=== PATIENT | male | born 1945 | race African-American/Black ===

== ENCOUNTER 2018-05-31 14:18 | Inpatient (IN) | payer MEDICARE, OTHER ==
[~2018-05-31] VITALS: Ht 165.1 cm; Wt 64.4 kg
[~2018-05-31 14:18] MED LIST: AMIODARONE PO; ASPI-1158 PO; ATOR40TA70 PO; CARV6.2548 PO; CILO100T PO; CLON0.1T PO; CLOP75TA33 PO; FINA5TAB11 PO; FLUT1DIS3 INH; FURO-151 PO; HYDR-3933 PO; KDUR10 PO; MEXILETINE PO; ONDA4TAB51 PO; PANT40TA4 PO; Proair HFA; RANI150C12 PO; SENN1TAB35 PO; SERT50TA PO; SPIR25TA6 PO; TAMS0.4C31 PO
[2018-05-31] MEDS ORDERED: ONDANSETRON HCL 4MG/2ML INJ IV STA (17:06)
[2018-05-31] MEDS ORDERED: MORPHINE SULFATE 4 MG/ML CPJ (NOT FOR IM USE) IV STA (17:06)
[2018-05-31 17:36] LABS: BASOPHILS % 0.3 % (0.0-2.0); EOSINOPHILS % 3.6 % (0.0-5.0); HEMATOCRIT. 40.4 % (42.0-52.0); LYMPHOCYTES % 42.8 % (20.0-50.0); MEAN CORPUSCULAR HEMOGLOBIN 28.7 pg (28.0-32.0); MEAN CORPUSCULAR VOLUME 89.2 fL (80.0-94.0); MONOCYTES % 12.8 % (2.0-8.0); NEUTROPHILS % 40.5 % (40.0-76.0); PLATELET 230 x1000/uL (130-400); RED BLOOD CELL COUNT 4.54 mill/uL (4.7-6.1); RED CELL DISTRIBUTION WIDTH 16.6 % (11.6-14.6)
[2018-05-31 17:39] LABS: CHLORIDE 111 mEq/L (98-107)
[2018-05-31 17:43] LABS: ETHANOL BLOOD < 10 mg/dL
[2018-05-31 18:00] LABS: PARTIAL THROMBOPLASTIN TIME 27.6 sec (23.4-31.0)
[2018-05-31 18:36] LABS: CLARITY URINE CLOUDY (CLEAR); COLOR URINE YELLOW (YELLOW); KETONES URINE NEGATIVE (NEGATIVE); LEUKOCYTE ESTERASE URINE TRACE (NEGATIVE); NITRITE URINE NEGATIVE (NEGATIVE); OCCULT BLOOD URINE NEGATIVE (NEGATIVE); PROTEIN URINE NEGATIVE (NEGATIVE); UROBILINOGEN URINE 0.2 E.U./dL (0.2-1.0)
[2018-05-31] MEDS ORDERED: LEVOFLOXACIN 500MG PREMIX 100 ML IV ONE (19:30)
[2018-05-31] MEDS ORDERED: ONDANSETRON HCL 4MG/2ML INJ IV PRN (22:30)
[2018-05-31] MEDS ORDERED: CLONIDINE 0.1MG TABLET PO PRN (22:30)
[2018-05-31] MEDS ORDERED: LOPERAMIDE HCL 2MG CAPSULE PO PRN (22:30)
[2018-05-31] MEDS ORDERED: LORAZEPAM 2MG/ML CPJ IV PRN (22:30)
[2018-05-31] MEDS ORDERED: HYDROCODONE/ACETAMINOPHEN 5/325MG TABLET PO PRN (22:30)
[2018-05-31] MEDS ORDERED: GUAIFENESIN 200MG/10ML SUGAR FREE UDC PO PRN (22:30)
[2018-05-31] MEDS ORDERED: ACETAMINOPHEN 325MG TABLET PO PRN (22:30)
[2018-05-31] MEDS ORDERED: MAGNESIUM/ALUMINUM HYDROXIDE/SIMETHICONE 30ML UDC PO PRN (22:30)
[2018-05-31 23:00] VITALS: BP 106/67
[2018-06-01] MEDS: TAMSULOSIN HCL 0.4MG SR CAPSULE PO SCH ×2 (00:34→09:32)
[2018-06-01] MEDS: SODIUM CHLORIDE 0.45% 1,000 ML IV SCH (00:34)
[2018-06-01 04:00] VITALS: BP 137/77
[2018-06-01 08:28] LABS: BASOPHILS % 0.4 % (0.0-2.0); EOSINOPHILS % 3.1 % (0.0-5.0); HEMOGLOBIN. 11.9 g/dL (14.0-18.0); LYMPHOCYTES % 51.8 % (20.0-50.0); MEAN CORPUSCULAR HEMOGLOBIN 28.1 pg (28.0-32.0); MEAN CORPUSCULAR VOLUME 89.4 fL (80.0-94.0); MEAN PLATELET VOLUME 9.1 fl (7.4-10.4); MONOCYTES % 12.5 % (2.0-8.0); NEUTROPHILS % 32.2 % (40.0-76.0); PLATELET 205 x1000/uL (130-400); RED BLOOD CELL COUNT 4.25 mill/uL (4.7-6.1); RED CELL DISTRIBUTION WIDTH 16.8 % (11.6-14.6)
[2018-06-01] MEDS: MULTIVITAMINS,THER W-MINERALS TABLET PO SCH (09:32)
[2018-06-01] MEDS: ENOXAPARIN 40MG/0.4ML SYR SUBCUT SCH (09:32)
[2018-06-01 10:11] LABS: CHLORIDE 114 mEq/L (98-107)
[2018-06-01] MEDS ORDERED: LORAZEPAM 2MG/ML CPJ IV PRN (11:15)
[2018-06-01] MEDS ORDERED: CLONIDINE 0.1MG TABLET PO PRN (11:15)
[2018-06-01 12:00] VITALS: BP 170/87
[2018-06-01] MEDS: POTASSIUM CHLORIDE 20MEQ TABLET SR PO SCH (12:39)
[2018-06-01] MEDS: SERTRALINE HCL 50MG TABLET PO SCH (12:39)
[2018-06-01] MEDS: FINASTERIDE 5MG TABLET PO SCH (12:39)
[2018-06-01] MEDS: CARVEDILOL 6.25 MG TABLET PO SCH ×2 (12:41→21:54)
[2018-06-01] MEDS ORDERED: HALOPERIDOL LACTATE 5MG/ML VIAL IM PRN (15:30)
[2018-06-01 16:00] VITALS: BP 144/90
[2018-06-01] MEDS: LORAZEPAM 2MG/ML CPJ IV PRN (17:28)
[2018-06-01 20:00] VITALS: BP 123/71
[2018-06-01] MEDS ORDERED: LEVOFLOXACIN 500MG PREMIX 100 ML IV SCH (20:00)
[2018-06-01] MEDS: LEVOFLOXACIN 500MG PREMIX 100 ML IV SCH (21:53)
[2018-06-01] MEDS: FUROSEMIDE 40MG TABLET PO SCH (21:54)
[2018-06-01] MEDS: ATORVASTATIN CALCIUM 40MG TABLET PO SCH (21:54)
[2018-06-02] VITALS: BP 147/83
[2018-06-02 04:00] VITALS: BP 136/63
[2018-06-02 08:00] VITALS: BP 174/84
[2018-06-02] MEDS: FINASTERIDE 5MG TABLET PO SCH (08:34)
[2018-06-02] MEDS: ENOXAPARIN 40MG/0.4ML SYR SUBCUT SCH (08:34)
[2018-06-02] MEDS: TAMSULOSIN HCL 0.4MG SR CAPSULE PO SCH (08:34)
[2018-06-02] MEDS: FUROSEMIDE 40MG TABLET PO SCH ×2 (08:35→20:48)
[2018-06-02] MEDS: POTASSIUM CHLORIDE 20MEQ TABLET SR PO SCH (08:35)
[2018-06-02] MEDS: MULTIVITAMINS,THER W-MINERALS TABLET PO SCH (08:35)
[2018-06-02] MEDS: CARVEDILOL 6.25 MG TABLET PO SCH ×2 (08:35→20:48)
[2018-06-02] MEDS: SERTRALINE HCL 50MG TABLET PO SCH (08:35)
[2018-06-02] MEDS ORDERED: TAMSULOSIN HCL 0.4MG SR CAPSULE PO SCH (09:00)
[2018-06-02 12:00] VITALS: BP 135/63
[2018-06-02] MEDS: SODIUM CHLORIDE 0.45% 1,000 ML IV SCH (12:29)
[2018-06-02 16:00] VITALS: BP 136/70
[2018-06-02 20:00] VITALS: BP 119/65
[2018-06-02] MEDS: ATORVASTATIN CALCIUM 40MG TABLET PO SCH (20:48)
[2018-06-02] MEDS: LEVOFLOXACIN 500MG PREMIX 100 ML IV SCH (21:07)
[2018-06-03] VITALS: BP 110/62
[2018-06-03] MEDS: SODIUM CHLORIDE 0.45% 1,000 ML IV SCH (02:37)
[2018-06-03 04:00] VITALS: BP 107/56
[2018-06-03 08:00] VITALS: BP 134/74
[2018-06-03] MEDS: FINASTERIDE 5MG TABLET PO SCH (08:32)
[2018-06-03] MEDS: TAMSULOSIN HCL 0.4MG SR CAPSULE PO SCH (08:32)
[2018-06-03] MEDS: POTASSIUM CHLORIDE 20MEQ TABLET SR PO SCH (08:32)
[2018-06-03] MEDS: MULTIVITAMINS,THER W-MINERALS TABLET PO SCH (08:32)
[2018-06-03] MEDS: FUROSEMIDE 40MG TABLET PO SCH ×2 (08:32→20:56)
[2018-06-03] MEDS: SERTRALINE HCL 50MG TABLET PO SCH (08:32)
[2018-06-03] MEDS: CARVEDILOL 6.25 MG TABLET PO SCH ×2 (08:32→20:55)
[2018-06-03] MEDS: ENOXAPARIN 40MG/0.4ML SYR SUBCUT SCH (08:32)
[2018-06-03 12:16] VITALS: BP 149/73
[2018-06-03] MEDS ORDERED: GENTAMICIN 120MG PREMIX 100 ML IV NR (13:00)
[2018-06-03] MEDS ORDERED: MEROPENEM PER PHARMACY XX SCH (13:15)
[2018-06-03 16:22] VITALS: BP 134/73
[2018-06-03] MEDS: MEROPENEM 1,000 MG in SODIUM CHLORIDE 0.9% 100 ML IV SCH (17:30)
[2018-06-03] MEDS: DOCUSATE SODIUM 100MG CAPSULE PO SCH (17:32)
[2018-06-03 20:00] VITALS: BP 138/58
[2018-06-03] MEDS: ATORVASTATIN CALCIUM 40MG TABLET PO SCH (20:55)
[2018-06-03] MEDS ORDERED: MAGNESIUM HYDROXIDE 400MG/5ML 30ML UDC PO PRN (23:15)
[2018-06-03] MEDS ORDERED: GENTAMICIN 80MG PREMIX 100 ML IV SCH (23:30)
[2018-06-04] VITALS: BP 164/74
[2018-06-04] MEDS: LORAZEPAM 2MG/ML CPJ IV PRN (00:09)
[2018-06-04] MEDS: MEROPENEM 1,000 MG in SODIUM CHLORIDE 0.9% 100 ML IV SCH ×3 (00:42→16:00)
[2018-06-04] MEDS: SODIUM CHLORIDE 0.45% 1,000 ML IV SCH (02:33)
[2018-06-04 04:00] VITALS: BP 107/71
[2018-06-04 07:34] LABS: HEMATOCRIT. 41.3 % (42.0-52.0); HEMOGLOBIN. 13.5 g/dL (14.0-18.0); MEAN CORPUSCULAR VOLUME 88.8 fL (80.0-94.0); MEAN PLATELET VOLUME 8.8 fl (7.4-10.4); PLATELET 223 x1000/uL (130-400); RED BLOOD CELL COUNT 4.66 mill/uL (4.7-6.1); RED CELL DISTRIBUTION WIDTH 16.6 % (11.6-14.6)
[2018-06-04 08:00] VITALS: BP 147/76
[2018-06-04] MEDS: CARVEDILOL 6.25 MG TABLET PO SCH (08:58)
[2018-06-04] MEDS: POTASSIUM CHLORIDE 20MEQ TABLET SR PO SCH (09:15)
[2018-06-04] MEDS: DOCUSATE SODIUM 100MG CAPSULE PO SCH (09:15)
[2018-06-04] MEDS: FUROSEMIDE 40MG TABLET PO SCH (09:15)
[2018-06-04] MEDS: ENOXAPARIN 40MG/0.4ML SYR SUBCUT SCH (09:15)
[2018-06-04] MEDS: TAMSULOSIN HCL 0.4MG SR CAPSULE PO SCH (09:15)
[2018-06-04] MEDS: FINASTERIDE 5MG TABLET PO SCH (09:15)
[2018-06-04] MEDS: MULTIVITAMINS,THER W-MINERALS TABLET PO SCH (09:16)
[2018-06-04] MEDS: SERTRALINE HCL 50MG TABLET PO SCH (09:16)
[2018-06-04 11:52] LABS: CHLORIDE 108 mEq/L (98-107)
[2018-06-04 12:00] VITALS: BP 101/57
[2018-06-04] MEDS ORDERED: BISACODYL 10MG SUPP PR NR (15:30)
[2018-06-04 16:00] VITALS: BP 125/63
[2018-06-04 17:19] VITALS: BP 125/63
[2018-06-04 17:42] LABS: PLATELET ESTIMATE NORMAL
== END 2018-06-04 18:30 | disposition home or self-care (01) | DRG 394 ==
LOC: ER 14:18 → 5WST 19:47 → EDBEDREQ 20:03 → SUPCPDRO 22:14 → ENRESERV 22:21 → 5WST 06-01 14:57
PROVIDERS: ADMIT Internal Medicine; ATTEND Internal Medicine
DX: K52.1 Toxic gastroenteritis and colitis (principal); N39.0 Urinary tract infection, site not specified; I10 Essential (primary) hypertension; J44.9 Chronic obstructive pulmonary disease, unspecified; N40.1 Benign prostatic hyperplasia with lower urinary tract symptoms; R33.8 Other retention of urine; E78.5 Hyperlipidemia, unspecified; Z16.12 Extended spectrum beta lactamase (ESBL) resistance; T47.4X5A Adverse effect of other laxatives, initial encounter; B96.20 Unspecified Escherichia coli [E. coli] as the cause of diseases classified elsewhere; E11.9 Type 2 diabetes mellitus without complications; Z79.1 Long term (current) use of non-steroidal anti-inflammatories (NSAID); Z79.899 Other long term (current) drug therapy; Z79.82 Long term (current) use of aspirin; Y92.89 Other specified places as the place of occurrence of the external cause; Z95.810 Presence of automatic (implantable) cardiac defibrillator
CPT/HCPCS: 36415; 71045; 74176; 82962; 83880; 84484; 87077; 87186; 93005; 93970; 96365; 96366; 96375; 99285; G0482; J1580; J1630; J1650; J1956; J2060; J2185; J2270; J2405; J7050

== ENCOUNTER 2018-08-20 20:09 | Inpatient (IN) | payer MEDICARE, OTHER ==
[~2018-08-20] VITALS: Ht 165.1 cm; Wt 64.9 kg
[2018-08-20] MEDS ORDERED: SODIUM CHLORIDE 0.9% 1,000 ML IV ONE (21:02)
[2018-08-20 21:51] LABS: BASOPHILS % 0.3 % (0.0-2.0); EOSINOPHILS % 2.2 % (0.0-5.0); HEMATOCRIT. 40.9 % (42.0-52.0); HEMOGLOBIN. 13.3 g/dL (14.0-18.0); LYMPHOCYTES % 49.6 % (20.0-50.0); MEAN CORPUSCULAR HEMOGLOBIN 29.4 pg (28.0-32.0); MEAN CORPUSCULAR VOLUME 90.4 fL (80.0-94.0); MEAN PLATELET VOLUME 8.5 fl (7.4-10.4); NEUTROPHILS % 35.9 % (40.0-76.0); PLATELET 199 x1000/uL (130-400); RED BLOOD CELL COUNT 4.52 mill/uL (4.7-6.1); RED CELL DISTRIBUTION WIDTH 15.9 % (11.6-14.6)
[2018-08-20 21:58] LABS: CHLORIDE 114 mEq/L (98-107)
[2018-08-20 22:52] LABS: CLARITY URINE CLEAR (CLEAR); COLOR URINE YELLOW (YELLOW); KETONES URINE NEGATIVE (NEGATIVE); LEUKOCYTE ESTERASE URINE NEGATIVE (NEGATIVE); NITRITE URINE NEGATIVE (NEGATIVE); OCCULT BLOOD URINE NEGATIVE (NEGATIVE); PROTEIN URINE NEGATIVE (NEGATIVE); SPECIFIC GRAVITY URINE 1.015 (1.005-1.030); UROBILINOGEN URINE 0.2 E.U./dL (0.2-1.0)
[2018-08-21] VITALS (7 sets, daily range): BP systolic 110–153; BP diastolic 65–74
[2018-08-21] MEDS ORDERED: ONDANSETRON HCL 4MG/2ML INJ IV PRN (08:15)
[2018-08-21] MEDS ORDERED: IPRATROPIUM/ALBUTEROL 0.5-3(2.5)MG/3ML NEB INH PRN (08:15)
[2018-08-21] MEDS ORDERED: TRAMADOL 50MG TABLET PO PRN (08:15)
[2018-08-21] MEDS ORDERED: DOCUSATE SODIUM 100MG CAPSULE PO PRN (08:15)
[2018-08-21] MEDS ORDERED: GUAIFENESIN 200MG/10ML SUGAR FREE UDC PO PRN (08:15)
[2018-08-21] MEDS ORDERED: NITROGLYCERIN 0.4MG TABLET SL SL PRN (08:15)
[2018-08-21] MEDS ORDERED: MAGNESIUM/ALUMINUM HYDROXIDE/SIMETHICONE 30ML UDC PO PRN (08:15)
[2018-08-21] MEDS ORDERED: ACETAMINOPHEN 325MG TABLET PO PRN (08:15)
[2018-08-21] MEDS ORDERED: ZOLPIDEM TARTRATE 5MG TABLET PO PRN (08:15)
[2018-08-21] MEDS ORDERED: CLONIDINE 0.1MG TABLET PO PRN (08:15)
[2018-08-21] MEDS ORDERED: FAMOTIDINE 20MG TABLET PO SCH ×2 (09:00)
[2018-08-21] MEDS ORDERED: ASPIRIN 325MG EC TABLET PO SCH (09:00)
[2018-08-21] MEDS ORDERED: CARVEDILOL 3.125 MG TABLET PO SCH (09:00)
[2018-08-21] MEDS ORDERED: CLOPIDOGREL 75MG TABLET PO SCH ×2 (09:00)
[2018-08-21] MEDS ORDERED: ENOXAPARIN 40MG/0.4ML SYR SUBCUT SCH (09:00)
[2018-08-21] MEDS ORDERED: DEXTROSE 50% WATER 50ML SYRINGE IV PRN (10:00)
[2018-08-21] MEDS ORDERED: BLOOD SUGAR DIAGNOSTIC STRIP TEST SCH (11:45)
[2018-08-21] MEDS ORDERED: INSULIN LISPRO 100 UNITS/ML SUBCUT SCH (12:15)
[2018-08-21 15:04] LABS: *AMPHETAMINES SCREEN URINE PRESUMTIVE POSITIVE (NEGATIVE); *BARBITURATES SCREEN URINE NEGATIVE (NEGATIVE); *BENZODIAZEPINES SCREEN URINE NEGATIVE (NEGATIVE)
[2018-08-21 15:05] LABS: *COCAINE SCREEN URINE NEGATIVE (NEGATIVE); CANNABINOID URINE SCREEN NEGATIVE (NEGATIVE); METHADONE URINE SCREEN NEGATIVE (NEGATIVE); OPIATES URINE SCREEN NEGATIVE (NEGATIVE); PHENCYCLIDINE URINE SCREEN NEGATIVE (NEGATIVE)
[2018-08-21 16:20] LABS: CREATINE KINASE MB FRACTION 1.4 ng/mL (0.5-3.6)
== END 2018-08-21 21:38 | disposition short-term general hospital (02) | DRG 312 ==
LOC: ER 20:09 → 5WST 08-21 01:24 → EDBEDREQDT 08-21 01:25 → EDBEDREQTM 08-21 01:25 → EDBEDREQ 08-21 01:25 → ENRESERV 08-21 02:08
PROVIDERS: ADMIT Internal Medicine; ATTEND Internal Medicine
DX: R55 Syncope and collapse (principal); N17.0 Acute kidney failure with tubular necrosis; I42.9 Cardiomyopathy, unspecified; E44.0 Moderate protein-calorie malnutrition; E11.9 Type 2 diabetes mellitus without complications; I11.0 Hypertensive heart disease with heart failure; I50.9 Heart failure, unspecified; R00.1 Bradycardia, unspecified; J44.9 Chronic obstructive pulmonary disease, unspecified; Z95.810 Presence of automatic (implantable) cardiac defibrillator; I25.2 Old myocardial infarction; Z79.82 Long term (current) use of aspirin; Z79.899 Other long term (current) drug therapy; Z68.23 Body mass index [BMI] 23.0-23.9, adult; D63.8 Anemia in other chronic diseases classified elsewhere; F15.10 Other stimulant abuse, uncomplicated
CPT/HCPCS: 36415; 71045; 80061; 80305; 82550; 82553; 82962; 83036; 83605; 83880; 84484; 93005; 93306; 93880; 96360; 96361; 99285; J1650; J7030

== ENCOUNTER 2018-12-07 05:42 | Inpatient (IN) | payer MEDICARE, OTHER ==
[~2018-12-07] VITALS: Ht 162.6 cm; Wt 58.1 kg
[2018-12-07] VITALS (7 sets, daily range): BP systolic 16–165; BP diastolic 55–97
[~2018-12-07 05:42] MED LIST changes: -AMIODARONE PO; -MEXILETINE PO; -Proair HFA
[2018-12-07] MEDS ORDERED: DEXTROSE 50% WATER 50ML SYRINGE IV ONE ×4 (06:37→10:27)
[2018-12-07 06:45] LABS: BASOPHILS % 0.4 % (0.0-2.0); EOSINOPHILS % 3.9 % (0.0-5.0); HEMATOCRIT. 37.3 % (42.0-52.0); HEMOGLOBIN. 12.4 g/dL (14.0-18.0); LYMPHOCYTES % 39.8 % (20.0-50.0); MEAN CORPUSCULAR HEMOGLOBIN 29.9 pg (28.0-32.0); MEAN CORPUSCULAR VOLUME 89.8 fL (80.0-94.0); MEAN PLATELET VOLUME 8.4 fl (7.4-10.4); NEUTROPHILS % 43.9 % (40.0-76.0); PLATELET 212 x1000/uL (130-400); RED BLOOD CELL COUNT 4.15 mill/uL (4.7-6.1); RED CELL DISTRIBUTION WIDTH 15.2 % (11.6-14.6)
[2018-12-07 06:52] LABS: CHLORIDE 114 mEq/L (98-107)
[2018-12-07 06:58] LABS: ETHANOL BLOOD < 10 mg/dL
[2018-12-07] MEDS ORDERED: HYDRALAZINE 20MG/ML VIAL IV ONE (08:00)
[2018-12-07 09:18] LABS: PARTIAL THROMBOPLASTIN TIME 30.3 sec (23.4-31.0)
[2018-12-07] MEDS ORDERED: ENOXAPARIN 40MG/0.4ML SYR SUBCUT SCH (10:00)
[2018-12-07] MEDS ORDERED: NITROGLYCERIN 0.4MG TABLET SL SL PRN (10:00)
[2018-12-07] MEDS: AMIODARONE HCL 200 MG TABLET PO SCH (10:00)
[2018-12-07] MEDS ORDERED: LORAZEPAM 0.5MG TABLET PO PRN (10:00)
[2018-12-07] MEDS ORDERED: DOCUSATE SODIUM 100MG CAPSULE PO PRN (10:00)
[2018-12-07] MEDS ORDERED: CLONIDINE 0.1MG TABLET PO PRN (10:00)
[2018-12-07] MEDS ORDERED: IPRATROPIUM/ALBUTEROL 0.5-3(2.5)MG/3ML NEB INH PRN (10:00)
[2018-12-07] MEDS ORDERED: ONDANSETRON HCL 4MG/2ML INJ IV PRN (10:00)
[2018-12-07] MEDS ORDERED: MAGNESIUM/ALUMINUM HYDROXIDE/SIMETHICONE 30ML UDC PO PRN (10:00)
[2018-12-07] MEDS ORDERED: ACETAMINOPHEN 325MG TABLET PO PRN (10:00)
[2018-12-07] MEDS ORDERED: GUAIFENESIN 200MG/10ML SUGAR FREE UDC PO PRN (10:00)
[2018-12-07] MEDS: DEXTROSE 50% WATER 50ML SYRINGE IV PRN ×2 (10:51→17:10)
[2018-12-07] MEDS: DEXT 10% WATER 1,000 ML IV SCH (11:00)
[2018-12-07] MEDS: ASPIRIN 325MG EC TABLET PO SCH (11:07)
[2018-12-07] MEDS: ISOSORBIDE MONONITRATE 60MG TABLET SR 24HR PO SCH (11:07)
[2018-12-07] MEDS: CARVEDILOL 12.5MG TABLET PO SCH ×2 (11:07→21:00)
[2018-12-07] MEDS: DUTASTERIDE 0.5MG CAPSULE PO SCH (11:07)
[2018-12-07] MEDS: ENOXAPARIN 60MG/0.6ML SYR SUBCUT SCH ×2 (11:08→22:33)
[2018-12-07] MEDS ORDERED: DEXTROSE 50% WATER 50ML SYRINGE IV PRN (11:45)
[2018-12-07] MEDS: BLOOD SUGAR DIAGNOSTIC STRIP TEST SCH ×6 (12:15→22:20)
[2018-12-07] MEDS: INSULIN LISPRO 100 UNITS/ML SUBCUT SCH ×3 (12:16→22:20)
[2018-12-07] MEDS ORDERED: GLUCAGON,HUMAN RECOMBINANT 1MG/VIAL IM SCH (17:30)
[2018-12-07] MEDS ORDERED: ZOLPIDEM TARTRATE 5MG TABLET PO PRN (21:00)
[2018-12-07] MEDS: TAMSULOSIN HCL 0.4MG SR CAPSULE PO SCH (22:37)
[2018-12-07] MEDS: ATORVASTATIN CALCIUM 10MG TABLET PO SCH (22:38)
[2018-12-07] MEDS: FAMOTIDINE 20MG TABLET PO SCH (22:38)
[2018-12-08] VITALS (9 sets, daily range): BP systolic 130–183; BP diastolic 74–87
[2018-12-08 02:59] LABS: CLARITY URINE CLEAR (CLEAR); COLOR URINE YELLOW (YELLOW); KETONES URINE NEGATIVE (NEGATIVE); LEUKOCYTE ESTERASE URINE NEGATIVE (NEGATIVE); NITRITE URINE NEGATIVE (NEGATIVE); OCCULT BLOOD URINE NEGATIVE (NEGATIVE); PH URINE 5.5 (4.5-8.0); PROTEIN URINE NEGATIVE (NEGATIVE); SPECIFIC GRAVITY URINE 1.014 (1.005-1.030); UROBILINOGEN URINE 0.2 E.U./dL (0.2-1.0)
[2018-12-08 03:35] LABS: *AMPHETAMINES SCREEN URINE PRESUMTIVE POSITIVE (NEGATIVE); *BARBITURATES SCREEN URINE NEGATIVE (NEGATIVE); *BENZODIAZEPINES SCREEN URINE NEGATIVE (NEGATIVE); METHADONE URINE SCREEN NEGATIVE (NEGATIVE); OPIATES URINE SCREEN NEGATIVE (NEGATIVE)
[2018-12-08 03:36] LABS: *COCAINE SCREEN URINE NEGATIVE (NEGATIVE); CANNABINOID URINE SCREEN NEGATIVE (NEGATIVE); PHENCYCLIDINE URINE SCREEN NEGATIVE (NEGATIVE)
[2018-12-08] MEDS: BLOOD SUGAR DIAGNOSTIC STRIP TEST SCH ×10 (04:29→20:47)
[2018-12-08] MEDS ORDERED: DEXTROSE 50% WATER 50ML SYRINGE IV PRN (04:45)
[2018-12-08] MEDS: INSULIN LISPRO 100 UNITS/ML SUBCUT SCH ×4 (07:20→20:47)
[2018-12-08] MEDS: DUTASTERIDE 0.5MG CAPSULE PO SCH (08:04)
[2018-12-08] MEDS: AMIODARONE HCL 200 MG TABLET PO SCH (08:04)
[2018-12-08] MEDS: LEVOTHYROXINE SODIUM 75MCG TABLET PO SCH (08:04)
[2018-12-08] MEDS: ISOSORBIDE MONONITRATE 60MG TABLET SR 24HR PO SCH (08:04)
[2018-12-08] MEDS: ASPIRIN 325MG EC TABLET PO SCH (08:04)
[2018-12-08] MEDS: FAMOTIDINE 20MG TABLET PO SCH ×2 (08:05→20:41)
[2018-12-08] MEDS: CARVEDILOL 12.5MG TABLET PO SCH ×2 (08:05→20:47)
[2018-12-08] MEDS: TRAMADOL 50MG TABLET PO PRN (08:05)
[2018-12-08] MEDS: TAMSULOSIN HCL 0.4MG SR CAPSULE PO SCH ×2 (08:05→20:43)
[2018-12-08] MEDS: ENOXAPARIN 60MG/0.6ML SYR SUBCUT SCH ×2 (08:09→20:39)
[2018-12-08] MEDS ORDERED: GLUCAGON,HUMAN RECOMBINANT 1MG/VIAL IM STA (08:26)
[2018-12-08] MEDS: DEXT 10% WATER 1,000 ML IV SCH (08:41)
[2018-12-08 09:41] LABS: HEMOGLOBIN 11.7 g/dL (14.0-18.0); MEAN CORPUSCULAR HEMOGLOBIN 29.8 pg (28.0-32.0); MEAN CORPUSCULAR VOLUME 89.4 fL (80.0-94.0); PLATELET 219 x1000/uL (130-400); RED BLOOD CELL COUNT 3.91 mill/uL (4.7-6.1); RED CELL DISTRIBUTION WIDTH 15.6 % (11.6-14.6)
[2018-12-08 09:53] LABS: CHLORIDE 115 mEq/L (98-107)
[2018-12-08] MEDS: ATORVASTATIN CALCIUM 10MG TABLET PO SCH (20:41)
[2018-12-09] VITALS (7 sets, daily range): BP systolic 148–180; BP diastolic 86–94
[2018-12-09] MEDS: BLOOD SUGAR DIAGNOSTIC STRIP TEST SCH ×6 (00:45→16:12)
[2018-12-09] MEDS: DEXT 10% WATER 1,000 ML IV SCH (04:42)
[2018-12-09] MEDS: LEVOTHYROXINE SODIUM 75MCG TABLET PO SCH (06:29)
[2018-12-09] MEDS: INSULIN LISPRO 100 UNITS/ML SUBCUT SCH ×2 (07:20→12:20)
[2018-12-09] MEDS: TAMSULOSIN HCL 0.4MG SR CAPSULE PO SCH (07:53)
[2018-12-09] MEDS: FAMOTIDINE 20MG TABLET PO SCH (07:53)
[2018-12-09] MEDS: ASPIRIN 325MG EC TABLET PO SCH (07:53)
[2018-12-09] MEDS: AMIODARONE HCL 200 MG TABLET PO SCH (07:53)
[2018-12-09] MEDS: DUTASTERIDE 0.5MG CAPSULE PO SCH (07:53)
[2018-12-09] MEDS: CARVEDILOL 12.5MG TABLET PO SCH (07:54)
[2018-12-09] MEDS: ISOSORBIDE MONONITRATE 60MG TABLET SR 24HR PO SCH (07:54)
[2018-12-09] MEDS: TRAMADOL 50MG TABLET PO PRN (07:54)
[2018-12-09] MEDS: ENOXAPARIN 60MG/0.6ML SYR SUBCUT SCH (07:54)
[2018-12-09] MEDS ORDERED: LOSARTAN POTASSIUM 100 MG TABLET PO SCH (09:00)
== END 2018-12-09 16:15 | disposition short-term general hospital (02) | DRG 175 ==
LOC: ER 05:42 → EDBEDREQSVC 07:23 → 3WST 07:51 → EDBEDREQ 08:03 → ENRESERV 08:15
PROVIDERS: ADMIT Internal Medicine; ATTEND Internal Medicine
DX: I26.99 Other pulmonary embolism without acute cor pulmonale (principal); G92 Toxic encephalopathy; I50.22 Chronic systolic (congestive) heart failure; E44.1 Mild protein-calorie malnutrition; I42.9 Cardiomyopathy, unspecified; E11.649 Type 2 diabetes mellitus with hypoglycemia without coma; I11.0 Hypertensive heart disease with heart failure; E03.9 Hypothyroidism, unspecified; E78.00 Pure hypercholesterolemia, unspecified; F15.10 Other stimulant abuse, uncomplicated; I25.10 Atherosclerotic heart disease of native coronary artery without angina pectoris; J43.9 Emphysema, unspecified; Z78.1 Physical restraint status; Z86.73 Personal history of transient ischemic attack (TIA), and cerebral infarction without residual deficits; I25.2 Old myocardial infarction; Z87.891 Personal history of nicotine dependence; Z95.1 Presence of aortocoronary bypass graft; Z95.810 Presence of automatic (implantable) cardiac defibrillator; Z79.82 Long term (current) use of aspirin; Z79.899 Other long term (current) drug therapy; Z68.22 Body mass index [BMI] 22.0-22.9, adult
CPT/HCPCS: 36415; 71045; 71275; 80048; 80061; 80305; 80320; 82947; 82962; 83036; 83880; 84443; 84484; 85027; 85379; 93005; 93306; 93970; 96374; 96375; 99291; J0360; J1610; J1650; G0480

== ENCOUNTER 2020-09-09 05:17 | Emergency (ER) | payer OTHER, MEDICAID ==
[~2020-09-09] VITALS: Ht 172.7 cm; Wt 66.0 kg
[~2020-09-09 05:17] MED LIST changes: -ASPI-1158 PO; -ATOR40TA70 PO; -CARV6.2548 PO; -CILO100T PO; -CLOP75TA33 PO; -FINA5TAB11 PO; -FLUT1DIS3 INH; -FURO-151 PO; -HYDR-3933 PO; -KDUR10 PO; -ONDA4TAB51 PO; -PANT40TA4 PO; -RANI150C12 PO; -SENN1TAB35 PO; -SERT50TA PO; -SPIR25TA6 PO
[2020-09-09 06:53] LABS: BASOPHILS % 0.5 % (0.0-2.0); EOSINOPHILS % 3.3 % (0.0-5.0); HEMATOCRIT. 40.5 % (42.0-52.0); HEMOGLOBIN. 13.2 g/dL (14.0-18.0); LYMPHOCYTES % 36.5 % (20.0-50.0); MEAN CORPUSCULAR VOLUME 88.8 fL (80.0-94.0); MEAN PLATELET VOLUME 8.3 fl (7.4-10.4); MONOCYTES % 12.6 % (2.0-8.0); NEUTROPHILS % 47.1 % (40.0-76.0); PLATELET 232 x1000/uL (130-400); RED BLOOD CELL COUNT 4.55 mill/uL (4.7-6.1)
[2020-09-09 07:09] LABS: CHLORIDE 107 mEq/L (98-107)
[2020-09-09 11:30] VITALS: BP 105/56
== END 2020-09-09 13:22 | disposition short-term general hospital (02) ==
LOC: ER 05:17
DX: T82.198A Other mechanical complication of other cardiac electronic device, initial encounter (principal); I25.2 Old myocardial infarction; I25.10 Atherosclerotic heart disease of native coronary artery without angina pectoris; I50.9 Heart failure, unspecified; J45.909 Unspecified asthma, uncomplicated; Z95.0 Presence of cardiac pacemaker; Y83.8 Other surgical procedures as the cause of abnormal reaction of the patient, or of later complication, without mention of misadventure at the time of the procedure; Y92.018 Other place in single-family (private) house as the place of occurrence of the external cause
CPT/HCPCS: 36415; 71045; 80053; 83880; 84484; 85025; 93005; 99285

== ENCOUNTER 2021-06-26 08:58 | Emergency (ER) | payer OTHER, MEDICAID ==
[~2021-06-26] VITALS: Ht 172.7 cm; Wt 73.0 kg
[2021-06-26] MEDS ORDERED: SODIUM CHLORIDE 0.9% 1,000 ML IV ONE (09:30)
[2021-06-26 10:33] LABS: BASOPHILS % 0.8 % (0.0-2.0); HEMATOCRIT. 39.1 % (42.0-52.0); HEMOGLOBIN. 12.3 g/dL (14.0-18.0); LYMPHOCYTES % 32.2 % (20.0-50.0); MEAN PLATELET VOLUME 9.6 fl (7.4-10.4); MONOCYTES % 12.5 % (2.0-8.0); NEUTROPHILS % 52.5 % (40.0-76.0); PLATELET 178 x1000/uL (130-400); RED BLOOD CELL COUNT 4.25 mill/uL (4.7-6.1); RED CELL DISTRIBUTION WIDTH 16.2 % (11.6-14.6)
[2021-06-26 10:37] LABS: CHLORIDE 116 mEq/L (98-107)
[2021-06-26 11:38] LABS: CLARITY URINE CLOUDY (CLEAR); COLOR URINE DARK YELLOW (YELLOW); KETONES URINE 1+ (NEGATIVE); LEUKOCYTE ESTERASE URINE 1+ (NEGATIVE); NITRITE URINE POSITIVE (NEGATIVE); OCCULT BLOOD URINE NEGATIVE (NEGATIVE); PROTEIN URINE TRACE (NEGATIVE); SPECIFIC GRAVITY URINE 1.023 (1.005-1.030)
[2021-06-26] MEDS ORDERED: CEFTRIAXONE 1 G PREMIX 50 ML IV ONE (12:00)
[2021-06-26 18:42] VITALS: BP 132/66
== END 2021-06-26 19:05 | disposition admitted as inpatient to this hospital (09) ==
LOC: ER 09:28 → CANBEDREQ 18:05 → ER 19:05
DX: R41.82 Altered mental status, unspecified (principal); R53.1 Weakness; N30.90 Cystitis, unspecified without hematuria; J45.909 Unspecified asthma, uncomplicated; I50.9 Heart failure, unspecified; I25.2 Old myocardial infarction; Z95.0 Presence of cardiac pacemaker; Z20.822 Contact with and (suspected) exposure to COVID-19
CPT/HCPCS: 36415; 70450; 71045; 80053; 81003; 82962; 84484; 85025; 87040; 87086; 87186; 87426; 93005; 96361; 96365; 99291; J0696; J7030

== ENCOUNTER 2021-07-11 18:06 | Inpatient (IN) | payer OTHER, MEDICAID ==
[~2021-07-11] VITALS: Ht 172.7 cm; Wt 60.0 kg
[~2021-07-11 18:06] MED LIST changes: +ADENOSINE 3 MG/ML 2ML VIAL IV ONE; +DEXTROSE 50% WATER 50ML SYRINGE IV ONE; +EPINEPHRINE 0.1MG/ML (1:10,000) 10ML SYR ONE; +SODIUM BICARBONATE 8.4% 1 MEQ/ML 50ML SYR IV ONE
[2021-07-11] MEDS ORDERED: SODIUM CHLORIDE 0.9% 1,000 ML IV ONE (18:15)
[2021-07-11] MEDS ORDERED: THIAMINE HCL 500 MG in SODIUM CHLORIDE 0.9% 95 ML IV STA (19:05)
[2021-07-11] MEDS ORDERED: PIPERACILLIN/TAZ 3.375G PREMIX 50 ML IV STA (19:12)
[2021-07-11] MEDS ORDERED: LEVOFLOXACIN 500MG PREMIX 100 ML IV ONE (19:15)
[2021-07-11 19:23] LABS: HEMATOCRIT. 28.7 % (42.0-52.0); HEMOGLOBIN. 9.7 g/dL (14.0-18.0); MEAN CORPUSCULAR HEMOGLOBIN 30.2 pg (28.0-32.0); MEAN CORPUSCULAR VOLUME 89.5 fL (80.0-94.0); MEAN PLATELET VOLUME 10.3 fl (7.4-10.4); PLATELET 202 x1000/uL (130-400); RED BLOOD CELL COUNT 3.21 mill/uL (4.7-6.1); RED CELL DISTRIBUTION WIDTH 15.9 % (11.6-14.6)
[2021-07-11 19:29] LABS: CHLORIDE 113 mEq/L (98-107)
[2021-07-11 19:31] LABS: INR 1.4
[2021-07-11 19:33] LABS: ETHANOL BLOOD < 10 mg/dL
[2021-07-11 19:33] LABS: BG BASE EXCESS -6.1 mmol/L (-2.0-2.0); BG CARBOXYHEMOGLOBIN 0.3 % (0.5-1.5); BG DEOXYHEMOGLOBIN 4.8 % (0.0-5.0); BG FRACTION INSPIRED OXYGEN 32; BG HCO3 ACT 17.2 mmol/L (22.0-26.0); BG METHEMOGLOBIN 0.3 % (0.0-1.5); BG OXYGEN SATURATION 95.2 % (92.0-98.5); BG OXYHEMOGLOBIN 94.6 % (94.0-97.0); BG PCO2 27.2 mmHg (35.0-45.0); BG PH 7.419 (7.350-7.450); BG PO2 80.6 mmHg (75.0-100.0); BG TOTAL HEMOGLOBIN 10.9 g/dL (12.0-18.0); BG VENT MODE NASAL CANNULA
[2021-07-11 19:36] LABS: LDL CHOLESTEROL 78 mg/dL (5-100)
[2021-07-11 19:37] LABS: CREATINE KINASE 198 IU/L (39-308)
[2021-07-11 20:49] LABS: PLATELET ESTIMATE NORMAL
[2021-07-11] MEDS ORDERED: IPRATROPIUM/ALBUTEROL 0.5-3(2.5)MG/3ML NEB HHN PRN (21:15)
[2021-07-11] MEDS ORDERED: *TOBRAMYCIN PER PHARMACY XX SCH (21:15)
[2021-07-11] MEDS ORDERED: [UNRECOGNIZED DRUG - REMARK] XX SCH (21:15)
[2021-07-11] MEDS ORDERED: ONDANSETRON HCL 4MG/2ML INJ IV PRN (21:15)
[2021-07-11] MEDS ORDERED: ENOXAPARIN 60MG/0.6ML SYR SUBCUT ONE (21:15)
[2021-07-11] MEDS ORDERED: IOHEXOL-350 100 ML BOTTLE ONE (21:15)
[2021-07-11] MEDS ORDERED: PIPERACILLIN/TAZOBACTAM 3.375GM/50ML PREMIX IV SCH (21:15)
[2021-07-11] MEDS ORDERED: NOREPINEPHRINE 8MG/250ML PMX 250 ML IV PRN (21:30)
[2021-07-11] MEDS ORDERED: THIAMINE HCL 500 MG in SODIUM CHLORIDE 0.9% 95 ML IV SCH (22:00)
[2021-07-11] MEDS ORDERED: DOPAMINE HCL 400 MG in DEXT 5% WATER 240 ML IV PRN (22:00)
[2021-07-11] MEDS ORDERED: LORAZEPAM 0.5MG TABLET PO PRN (22:15)
[2021-07-11] MEDS ORDERED: VANCOMYCIN 1G PREMIX 200 ML IV NR (22:15)
[2021-07-11] MEDS ORDERED: LACTATED RINGERS 1,000 ML IV SCH (22:30)
[2021-07-12] MEDS: PIPERACILLIN/TAZ 3.375G PREMIX 50 ML IV SCH ×2 (00:30→06:32)
[2021-07-12] MEDS ORDERED: THIAMINE HCL 500 MG in SODIUM CHLORIDE 0.9% 95 ML IV SCH (06:00)
[2021-07-12 08:45] LABS: BASOPHILS % 0.1 % (0.0-2.0); HEMATOCRIT. 34.1 % (42.0-52.0); HEMOGLOBIN. 10.9 g/dL (14.0-18.0); LYMPHOCYTES % 7.5 % (20.0-50.0); MEAN CORPUSCULAR HEMOGLOBIN 29.1 pg (28.0-32.0); MONOCYTES % 8.4 % (2.0-8.0); PLATELET 157 x1000/uL (130-400); RED BLOOD CELL COUNT 3.75 mill/uL (4.7-6.1)
[2021-07-12 08:55] LABS: CHLORIDE 114 mEq/L (98-107)
[2021-07-12] MEDS ORDERED: IRON SUCROSE COMPLEX 100 MG/5 ML ML IV SCH (09:00)
[2021-07-12] MEDS ORDERED: FUROSEMIDE 40MG/4ML VIAL IVP NR (09:00)
[2021-07-12 09:02] LABS: LDL CHOLESTEROL 82 mg/dL (5-100)
[2021-07-12 09:03] LABS: HDL CHOLESTEROL 30 mg/dL (40-59)
[2021-07-12] MEDS ORDERED: ENOXAPARIN 60MG/0.6ML SYR SUBCUT SCH (09:30)
[2021-07-12 10:00] VITALS: BP 83/65
[2021-07-12] MEDS ORDERED: MEROPENEM 1,000 MG in SODIUM CHLORIDE 0.9% 100 ML IV SCH (10:00)
[2021-07-12] MEDS ORDERED: VANCOMYCIN 500MG PREMIX 100 ML IV SCH (10:00)
[2021-07-12 10:16] LABS: BG BASE EXCESS -11.6 mmol/L (-2.0-2.0); BG CARBOXYHEMOGLOBIN 0.3 % (0.5-1.5); BG DEOXYHEMOGLOBIN 7.4 % (0.0-5.0); BG FRACTION INSPIRED OXYGEN 40; BG HCO3 ACT 13.1 mmol/L (22.0-26.0); BG METHEMOGLOBIN 0.2 % (0.0-1.5); BG OXYGEN SATURATION 92.6 % (92.0-98.5); BG OXYHEMOGLOBIN 92.1 % (94.0-97.0); BG PCO2 26.3 mmHg (35.0-45.0); BG PH 7.314 (7.350-7.450); BG PO2 78.3 mmHg (75.0-100.0); BG SAMPLE SITE RIGHT BRACHIAL; BG TOTAL HEMOGLOBIN 11.1 g/dL (12.0-18.0); BG VENT MODE NASAL CANNULA
[2021-07-12] MEDS ORDERED: EPINEPHRINE 0.1MG/ML (1:10,000) 10ML SYR ONE (10:51)
[2021-07-12] MEDS ORDERED: VANCOMYCIN 1G PREMIX 200 ML IV SCH (12:00)
[2021-07-14] MEDS ORDERED: THIAMINE HCL IV SCH ×4 (09:00)
[2021-07-14] MEDS ORDERED: SODIUM CHLORIDE 0.9% IV SCH ×4 (09:00)
== END 2021-07-12 18:35 | DRG 70 ==
LOC: ER 18:06 → MICUSO 20:40
PROVIDERS: ADMIT Internal Medicine; ATTEND Internal Medicine
PROC: 5A12012 Performance of Cardiac Output, Single, Manual (ICD-10-PCS; principal; 2021-07-12)
DX: G93.40 Encephalopathy, unspecified (principal); I50.21 Acute systolic (congestive) heart failure; J96.01 Acute respiratory failure with hypoxia; J18.9 Pneumonia, unspecified organism; E44.0 Moderate protein-calorie malnutrition; I42.9 Cardiomyopathy, unspecified; I11.0 Hypertensive heart disease with heart failure; I46.9 Cardiac arrest, cause unspecified; R79.9 Abnormal finding of blood chemistry, unspecified; E78.5 Hyperlipidemia, unspecified; I25.10 Atherosclerotic heart disease of native coronary artery without angina pectoris; D64.9 Anemia, unspecified; E11.9 Type 2 diabetes mellitus without complications; I48.0 Paroxysmal atrial fibrillation; I50.9 Heart failure, unspecified; J43.9 Emphysema, unspecified; N40.0 Benign prostatic hyperplasia without lower urinary tract symptoms; Z86.73 Personal history of transient ischemic attack (TIA), and cerebral infarction without residual deficits; Z79.899 Other long term (current) drug therapy; Z86.711 Personal history of pulmonary embolism; I25.2 Old myocardial infarction; Z68.20 Body mass index [BMI] 20.0-20.9, adult; Z95.1 Presence of aortocoronary bypass graft; Z95.810 Presence of automatic (implantable) cardiac defibrillator; R74.01 Elevation of levels of liver transaminase levels; I65.29 Occlusion and stenosis of unspecified carotid artery
CPT/HCPCS: 36415; 36600; 70496; 70498; 71045; 72128; 72131; 76700; 80048; 80053; 80061; 80320; 82140; 82375; 82550; 82805; 82962; 83036; 83540; 83550; 83605; 83721; 83880; 84145; 84443; 84484; 85025; 86850; 86900; 87426; 93005; 99291; J0153; J1650; J1956; J2185; J2543; J3370; J3411; J3490; J7030; J7050; Q9967; G0480